=== PATIENT | male | born 1955 | race Caucasian/White ===

== ENCOUNTER 2018-05-26 12:31 | Outpatient (CLI) | payer BC, SELFPAY ==
[2018-05-26 12:53] LABS: Abs Immature Grans 0.01 k/cumm (0.0-0.09); Absolute Basophil Count 0.03 k/cumm (0.0-0.2); Absolute Eosinophil Count 0.04 k/cumm (0.0-0.7); Absolute Lymphocyte Count 1.29 k/cumm (1.2-3.4); Absolute Monocyte Count 0.34 k/cumm (0.11-0.7); Absolute Neutrophil Count 2.44 k/cumm (1.2-6.7); Basophils % 0.7; HCT 45.4 % (40.0-50.0); HGB 15.3 g/dL (13.5-17.5); Immature Grans % 0.2; Lymphocytes % 31.1; Mean Corp. HGB Concentration 33.7 g/dL (32.0-36.0); Mean Corpuscular Hemoglobin 31.7 pg (27.0-33.0); Mean Platelet Volume 10.3 fL (8.0-11.0); Monocytes % 8.2; Neutrophils % 58.8; Platelet Count 192 x1000/uL (130-400); RBC 4.83 m/cumm (4.50-6.00); RBC Distribution Width 13.7 % (11.8-14.1); White Blood Cell Count 4.15 k/cumm (4.4-10.8)
[2018-05-26 13:25] LABS: ALT 20 U/L (12-78); AST 25 U/L (15-37); Albumin 3.9 g/dL (3.4-5.0); Alkaline Phosphatase 59 U/L (46-116); Anion Gap 4.8 mmol/L (3-11); BUN 20 mg/dL (7-18); Bilirubin, Total 0.4 mg/dL (0.2-1.0); CO2 31.2 mmol/L (21.0-32.0); CREATININE 1.09 mg/dL (0.70-1.30); Calcium 8.7 mg/dL (8.5-10.1); Chloride 103 mmol/L (98-107); Glucose 103 mg/dL (70-100); Potassium 4.6 mmol/L (3.5-5.1); Sodium 139 mmol/L (136-145); Total Protein 7.4 g/dL (6.4-8.2)
== END 2018-05-26 12:51 ==
PROVIDERS: PCP Internal Medicine; Visit Provider Internal Medicine Medical Oncology
DX: C15.9 Malignant neoplasm of esophagus, unspecified (principal)
CPT/HCPCS: 36415; 80053; 85025

== ENCOUNTER 2019-04-13 07:55 | Outpatient (REF) | payer BC, SELFPAY ==
[2019-04-13 22:37] LABS: Calculated LDL 136 mg/dL; Cholesterol 236 mg/dL (50-200); HDL Cholesterol 76 mg/dL (40-60); TSH (W/Ref FT4) 5.72 uIU/mL (0.36-3.74); Triglyceride 121 mg/dL (30-150)
[2019-04-13 22:54] LABS: FREE T4 0.92 ng/dL (0.76-1.46)
== END 2019-04-13 08:15 ==
LOC: NCHCN 07:55
PROVIDERS: PCP Internal Medicine; Visit Provider Internal Medicine
DX: E78.5 Hyperlipidemia, unspecified (principal); E03.9 Hypothyroidism, unspecified
CPT/HCPCS: 80061; 83721; 84439; 84443

== ENCOUNTER 2020-09-19 14:55 | Outpatient (REF) | payer BC, SELFPAY ==
[2020-09-19 14:08] LABS: Anion Gap 8.1 mmol/L (3-11); BUN 18 mg/dL (7-18); CO2 28.9 mmol/L (21.0-32.0); CREATININE 1.19 mg/dL (0.70-1.30); Calcium 9.5 mg/dL (8.5-10.1); Chloride 101 mmol/L (98-107); Glucose 97 mg/dL (74-106); Potassium 4.8 mmol/L (3.5-5.1); Sodium 138 mmol/L (136-145); TSH (W/Ref FT4) 1.46 uIU/mL (0.36-3.74)
== END 2020-09-19 15:15 ==
LOC: NCHCN 14:55
PROVIDERS: PCP Nurse Practitioner Family; Visit Provider Nurse Practitioner Family
DX: E03.9 Hypothyroidism, unspecified (principal)
CPT/HCPCS: 80048; 84443

== ENCOUNTER 2021-09-17 14:24 | Outpatient (REF) | payer BC, SELFPAY ==
[2021-09-17 16:16] LABS: TSH 6.81 uIU/mL (0.36-3.74)
== END 2021-09-17 14:25 | disposition home or self-care (01) ==
LOC: NCHCN 14:24
PROVIDERS: PCP Nurse Practitioner Family; Visit Provider Internal Medicine
DX: E03.9 Hypothyroidism, unspecified (principal)
CPT/HCPCS: 84443

== ENCOUNTER 2021-12-20 19:04 | Outpatient (REF) | payer BC, SELFPAY ==
[2021-12-20 16:14] LABS: TSH (W/Ref FT4) 4.17 uIU/mL (0.36-3.74)
[2021-12-20 16:48] LABS: FREE T4 0.69 ng/dL (0.76-1.46)
== END 2021-12-20 19:05 | disposition home or self-care (01) ==
LOC: NCHCN 19:04
PROVIDERS: PCP Nurse Practitioner Family; Visit Provider Internal Medicine
DX: E03.9 Hypothyroidism, unspecified (principal)
CPT/HCPCS: 84439; 84443

== ENCOUNTER 2022-09-30 10:58 | Outpatient (REF) | payer BC, SELFPAY ==
[2022-09-30 16:08] LABS: Calculated LDL 165 mg/dL (<100); Cholesterol 265 mg/dL (<200); HDL Cholesterol 82 mg/dL (40-60); TSH 3.12 uIU/mL (0.36-3.74); Triglyceride 90 mg/dL (<150)
== END 2022-09-30 10:59 | disposition home or self-care (01) ==
LOC: NCHCN 10:58
PROVIDERS: PCP Nurse Practitioner Family; Visit Provider Internal Medicine
DX: E03.9 Hypothyroidism, unspecified (principal); E78.5 Hyperlipidemia, unspecified
CPT/HCPCS: 80061; 84443

== ENCOUNTER 2023-05-12 21:24 | Outpatient (REF) | payer BC, SELFPAY ==
[2023-05-12 19:49] LABS: HCT 42.8 % (40.0-50.0); HGB 13.7 g/dL (13.5-17.5); MCH 27.6 pg (27.0-33.0); MCV 86 fL (80-95); MPV 10.5 fL (8.0-11.0); Platelet Count 296 10^3/uL (130-400); RBC 4.97 10^6/uL (4.36-5.78); RDW 15.1 % (11.8-14.1)
[2023-05-12 20:39] LABS: ALT 26 U/L (16-63); AST 35 U/L (15-37); Albumin 4.4 g/dL (3.4-5.0); Alkaline Phosphatase 58 U/L (46-116); Anion Gap 11.9 mmol/L (3-11); BUN 14 mg/dL (7-18); Bilirubin, Total 0.4 mg/dL (0.2-1.0); CO2 26.1 mmol/L (21.0-32.0); Calcium 9.5 mg/dL (8.5-10.1); Chloride 101 mmol/L (98-107); Estimated GFR 81.98 (mL/min/1.73m2); Glucose 88 mg/dL (74-106); Potassium 4.4 mmol/L (3.5-5.1); Sodium 139 mmol/L (136-145); Total Protein 8.1 g/dL (6.4-8.2)
--- OUTSIDE RECORDS SUMMARY | 2023-05-12 21:33 | XMS_ITS | CCD ---
Author Name Unknown Address [address] [place] [address] [phone] Organization Unknown Address [address] [place] [address] [id number] Care Team Providers Care Rn Stars Name Role Phone DORENE RM, SHAWN Cabrera Attending Physician [phone] Vital Signs Vital Sign Value Unit Date/Time Recent/Initial ? BP Systolic 116 mmHg 05/14/2021 10:38 Initial VS BP Diastolic 85 mmHg 05/14/2021 10:38 Initia l VS Respiratory Rate 17 bpm 05/14/2021 10:38 In itial VS Heart Rate 63 bpm 05/14/2021 10:38 Initial VS O2 % BldC Oximetry 95 % 05/14/2021 10:38 Initial VS BP Systolic 119 mmHg 05/14/2021 10:43 Most Re cent VS BP Diastolic 78 mmHg 05/14/2021 10:43 Most R ecent VS Respiratory Rate 18 bpm 05/14/2021 10:[address] Recent VS Heart Rate 65 bpm 05/14/2021 10:43 Most Rec ent VS O2 % BldC Oximetry 98 % 05/14/2021 10:43 Most Recent VS Allergies Allergy Code Allergy Type Reaction Status No Known Drug Allergies 0 No known drug allergies Active Procedures Procedure Code Procedure Type Date Colsc Flx w/[place] [address] CPT 05/14/2021 History of Immunizations Unknown or Not Available. Problems Unknown or Not Available. Results Unknown or Not Available. Active Medications Medication Code Dose Units Frequency Route Modificatio n Start Date/Time ALPRAZolam 1MG Oral Tablet 114938 1 TABLET NEEDED EVERY 6HRS ORAL 08/04/2014 15:38 Prescription Detail TAKE 1 TABLET ORAL NEEDED EVERY 6HRS Levothyroxine 0.1MG Oral Tablet 917019 0.1 MILLIGRAMS DAILY ORAL 4 15:38 Prescription Detail TAKE 0.1 MILLIGRAMS ORAL DAILY oxyCODONE HCl 5MG Oral Tablet 0022449 5 MILLIGRAMS NEEDED ORAL 15:38 Prescription Detail TAKE 5 MILLIGRAMS ORAL NEEDED Medications Administered During Visit Unknown or Not Available. Encounters Encounter Diagnosis Diagnosis Code Start Date Encounter for screening for malignant neoplasm o f colon [id number] 05/14/2021 Social History Smoking Status Code Start Date End Date Never smoker [id number] Patient Decision Aids Unknown or Not Available. Discharge Instructions You were admitted to [facility] on 05/14/2021 08:35 with a principal diagnosis of Encounter for screening for malignant neoplasm of colon You had the following procedures done:Colsc Flx w/Rmvl Of Tumor Polyp Lesion Snare Tq You were discharged from [facility] on 05/14/2021 10:54 Should you have any questions prior to discharge, please contact a member of your healthcare team. If you have left the hospital and have any questions, please contact your primary care physician. Chief Complaint and Reason For Visit Unknown or Not Available. Function Status Unknown or Not Available. Plan of Care Unknown or Not Available. Referral/Transition of Care Unknown or Not Available.
== END 2023-05-12 21:25 | disposition home or self-care (01) ==
LOC: NCHCN 21:24
PROVIDERS: PCP Nurse Practitioner Family; Visit Provider Internal Medicine
DX: E03.9 Hypothyroidism, unspecified (principal); Z51.81 Encounter for therapeutic drug level monitoring
CPT/HCPCS: 80053; 85027; 84443

== ENCOUNTER 2024-04-14 10:59 | Outpatient (REF) | payer BC, SELFPAY ==
[2024-04-14 15:43] LABS: Calculated LDL 95 mg/dL (<100); Cholesterol 198 mg/dL (<200); HDL Cholesterol 83 mg/dL (40-60); TSH 6.41 uIU/Ml (0.36-3.74); Triglyceride 103 mg/dL (<150)
[2024-04-14 22:24] LABS: PSA, Screening 1.2 ng/mL (<=4.5)
== END 2024-04-14 11:00 | disposition home or self-care (01) ==
LOC: NCHCN 10:59
PROVIDERS: PCP Nurse Practitioner Family; Visit Provider Internal Medicine
DX: E78.5 Hyperlipidemia, unspecified (principal); E03.9 Hypothyroidism, unspecified; Z12.5 Encounter for screening for malignant neoplasm of prostate
CPT/HCPCS: 80061; 84153; 84443

== ENCOUNTER 2024-06-22 13:04 | Outpatient (REF) | payer BC, SELFPAY ==
[2024-06-22 21:17] LABS: TSH 3.78 uIU/Ml (0.36-3.74)
== END 2024-06-22 13:05 | disposition home or self-care (01) ==
LOC: NCHCN 13:04
PROVIDERS: PCP Nurse Practitioner Family; Visit Provider Internal Medicine
DX: E03.9 Hypothyroidism, unspecified (principal)
CPT/HCPCS: 84443

== ENCOUNTER 2024-09-30 21:37 | Outpatient (REF) | payer BC, SELFPAY ==
[2024-09-30 15:51] LABS: TSH 6.02 uIU/mL (0.36-3.74)
== END 2024-09-30 21:38 | disposition home or self-care (01) ==
LOC: NCHCN 21:37
PROVIDERS: PCP Nurse Practitioner Family; Visit Provider Internal Medicine
DX: E03.9 Hypothyroidism, unspecified (principal)
CPT/HCPCS: 84443

== ENCOUNTER 2024-12-06 15:46 | Outpatient (REF) | payer BC, SELFPAY ==
[2024-12-06 22:32] LABS: TSH 0.17 uIU/mL (0.36-3.74)
== END 2024-12-06 15:47 | disposition home or self-care (01) ==
LOC: NCHCN 15:46
PROVIDERS: PCP Nurse Practitioner Family; Visit Provider Internal Medicine
DX: E03.9 Hypothyroidism, unspecified (principal)
CPT/HCPCS: 84443

== ENCOUNTER 2025-02-09 09:15 | Outpatient (REF) | payer BC, SELFPAY ==
[2025-02-09 14:34] LABS: TSH 0.98 uIU/mL (0.36-3.74)
== END 2025-02-09 09:16 | disposition home or self-care (01) ==
LOC: NCHCN 09:15
PROVIDERS: PCP Nurse Practitioner Family; Visit Provider Internal Medicine
DX: E03.9 Hypothyroidism, unspecified (principal)
CPT/HCPCS: 84443

== ENCOUNTER 2025-05-06 19:25 | Outpatient (REF) | payer MEDICARE, BC, SELFPAY ==
[2025-05-06 15:42] LABS: HCT 41.8 % (40.0-50.0); HGB 13.2 g/dL (13.5-17.5); MCH 26.5 pg (27.0-33.0); MCHC 31.6 % (32.0-36.0); MCV 84 fL (80-95); MPV 10.3 fL (8.0-11.0); Platelet Count 279 10^3/uL (130-400); RBC 4.99 10^6/uL (4.36-5.78); RDW 18.5 % (11.8-14.1); RDW-SD 54.3 fL; WBC 3.44 10^3/uL (4.4-10.8)
[2025-05-06 16:40] LABS: ALT 26 U/L (16-63); AST 30 U/L (15-37); Albumin 4.1 g/dL (3.4-5.0); Alkaline Phosphatase 52 U/L (46-116); Anion Gap 6.4 mmol/L (3-11); BUN 16 mg/dL (7-18); Bilirubin, Total 0.3 mg/dL (0.2-1.0); CO2 30.6 mmol/L (21.0-32.0); Calcium 9.3 mg/dL (8.5-10.1); Chloride 106 mmol/L (98-107); Glucose 89 mg/dL (74-106); Potassium 5.0 mmol/L (3.5-5.1); Sodium 143 mmol/L (136-145); TSH 16.99 uIU/mL (0.36-3.74); Total Protein 7.5 g/dL (6.4-8.2)
== END 2025-05-06 19:26 | disposition home or self-care (01) ==
LOC: NCHCN 19:25
PROVIDERS: PCP Nurse Practitioner Family; Visit Provider Internal Medicine
DX: E03.9 Hypothyroidism, unspecified (principal); E78.5 Hyperlipidemia, unspecified
CPT/HCPCS: 80053; 85027; 84443

== ENCOUNTER 2025-07-06 16:08 | Outpatient (REF) | payer MEDICARE, BC, SELFPAY ==
--- NOTE | 2025-07-06 09:00 | SKI_PTH ---
PATIENT: Jose Walsh LOC: [facility] U#:[id number] AGE/SX: 69/M ROOM: RE07/06/[address]: Stephanie Medellin : 1955 BED: DIS: 07/06/2025 SPEC #: [id number] RECD: 07/06/25 17:48 STATUS: CARL THOMPSON #: [id number] JESSE: 07/06/25 09:[address]: Stephanie Medellin DEPT: Surgical Specimen RECD BY: Mary Le ENTERED: 07/06/25 17:48 SP TYPE: SKI OTHR DR: Tabby Barber Tissues: 1 - SKIN BIOPSY(SHAVE/PUNCH) Procedures: SKIN LEVEL 4 Comments: [id number]
== END 2025-07-06 16:09 | disposition home or self-care (01) ==
LOC: NCHCN 16:08
PROVIDERS: PCP Nurse Practitioner Family; Visit Provider Internal Medicine
DX: L57.0 Actinic keratosis (principal)
CPT/HCPCS: 88305

== ENCOUNTER 2025-08-08 12:53 | Outpatient (REF) | payer MEDICARE, BC, SELFPAY ==
[2025-08-08 15:48] LABS: HCT 38.2 % (40.0-50.0); HGB 12.0 g/dL (13.5-17.5); MCH 25.9 pg (27.0-33.0); MCHC 31.4 % (32.0-36.0); MCV 83 fL (80-95); MPV 10.2 fL (8.0-11.0); Platelet Count 270 10^3/uL (130-400); RBC 4.63 10^6/uL (4.36-5.78); RDW 16.1 % (11.8-14.1); RDW-SD 48.6 fL; WBC 4.17 10^3/uL (4.4-10.8)
[2025-08-08 16:20] LABS: Ferritin 13 ng/mL (11-307); TSH 0.04 uIU/mL (0.55-4.78)
[2025-08-08 17:08] LABS: Folate 17.8 ng/mL (>5.38); Iron 87 ug/dL (65-175); Total Iron Binding Capacity 427 ug/dL (250-425); Transferrin Sat 20 % (20-55); Vitamin B12 354 pg/mL (211-911)
== END 2025-08-08 12:54 | disposition home or self-care (01) ==
LOC: NCHCN 12:53
PROVIDERS: PCP Nurse Practitioner Family; Visit Provider Internal Medicine
DX: D75.9 Disease of blood and blood-forming organs, unspecified (principal); E03.9 Hypothyroidism, unspecified
CPT/HCPCS: 85027; 82607; 82728; 82746; 83540; 83550; 84443